=== PATIENT | female | born 1955 | race Caucasian/White ===

== ENCOUNTER 2016-10-15 08:38 | Day surgery (SDC) | payer MEDICARE ==
[~2016-10-15] VITALS: Ht 167.6 cm
--- NOTE | 2016-10-17 08:09 | OR ---
ADMIT: 10/15/2016 RM/LOC: [facility] MR#: [id number] [address] [place], [place] [id number] DANIEL ROSE [id number] [address] [place] [address] Operative/Delivery Room Report SEX: F AGE: 61 : 1955 SURGERY DATE: 10/15/2016 SURGEON: Cordell Patel MD ADMITTANCE ATTENDANT: None. PREOPERATIVE DIAGNOSES: 1. Lumbar post laminectomy syndrome. 2. Lumbago. 3. Bilateral lower extremity pain. POSTOPERATIVE DIAGNOSES: 1. Lumbar post laminectomy syndrome. 2. Lumbago. 3. Bilateral lower extremity pain. PROCEDURE PERFORMED: Caudal epidural steroid injection. INDICATION FOR PROCEDURE: The patient is a pleasant female with history of chronic low back pain with radicular symptoms secondary to lumbar post laminectomy syndrome, comes here for planned caudal epidural steroid injection. ANESTHESIA: Local without sedation. ESTIMATED BLOOD LOSS: Zero. COMPLICATIONS: None immediately evident. DESCRIPTION OF PROCEDURE: The patient was seen in the preoperative area. Vital signs were taken. Prior to the procedure, the risks, benefits, and the alternative therapies were discussed at length. Patient consent is obtained and updated. Patient was taken to fluoroscopy suite and placed on the fluoroscopy table in a prone position. Pressure points were padded to comfort, monitors applied, and a timeout performed. Fluoroscopy was then brought in. Patient was sterilely prepped and draped in the usual manner with the ChloraPrep solution, ADMIT: 10/15/2016 RM/LOC: [facility] MR#: [id number] [address] [place] [id number] [address]EL ROSE [address] [place] [address] Operative/Delivery Room Report SEX: F AGE: 61 : 1955 and 1% lidocaine was used to anesthetize the appropriate needle entry site. Utilizing a lateral view of fluoroscopy, the sacral hiatus was entered using a 22-gauge curved-tip spinal needle. Once the epidural space had been entered, the patient was injected with 2 mL of Isovue-300, which showed outlining of posterior epidural wall with no evidence of vascular uptake and intrathecal migration. Next, a solution consisting of 20 mL of preservative free normal saline and 80 mg of Depo-Medrol was slowly injected. The needle was withdrawn. The patient was escorted back to preoperative area and observed for a period of time. PLAN: Discharge instructions were given. Followup was scheduled. 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 Cordell Patel MD/ cristiano JOB #: [id number] CC: Cordell Patel, Attending Physician [place]ama [place], Family Physician
== END 2016-10-15 10:35 | disposition home or self-care (01) ==
LOC: SSS 08:38
DX: G89.29 Other chronic pain (principal); M96.1 Postlaminectomy syndrome, not elsewhere classified; M48.08 Spinal stenosis, sacral and sacrococcygeal region; M54.18 Radiculopathy, sacral and sacrococcygeal region; J20.9 Acute bronchitis, unspecified; J06.9 Acute upper respiratory infection, unspecified; F32.9 Major depressive disorder, single episode, unspecified; M51.36 Other intervertebral disc degeneration, lumbar region; M79.7 Fibromyalgia; K21.9 Gastro-esophageal reflux disease without esophagitis; E78.5 Hyperlipidemia, unspecified; E87.6 Hypokalemia; D50.9 Iron deficiency anemia, unspecified; M17.9 Osteoarthritis of knee, unspecified; I26.99 Other pulmonary embolism without acute cor pulmonale; M48.06 Spinal stenosis, lumbar region; Z88.8 Allergy status to other drugs, medicaments and biological substances; Z47.1 Aftercare following joint replacement surgery; Z79.899 Other long term (current) drug therapy